=== PATIENT | female | born 1965 | race Caucasian/White ===

== ENCOUNTER 2016-05-06 13:29 | Emergency (ER) | payer OTHER ==
[2016-05-06 14:13] VITALS: TEMP 98.1
--- NOTE | 2016-05-06 14:17 | ED.PDOC ---
History of Present Illness - General Chief Complaint: Dental/Mouth Stated Complaint: right mouth discomfort Time Seen by Provider: 05/06/16 14:09 Source: patient Additional Information: PT WITH ONSET OF MANDIBULAR PAIN RADIATING TO R EAR. STARTED INITIALLY IN TEETH. - History of Present Illness Timing/Duration: other - 2 DAYS Severity: mild Improving Factors: nothing Worsening Factors: nothing Associated Symptoms: denies symptoms Allergies/Adverse Reactions: Allergies Aspirin Allergy (Verified 05/06/16 13:55) Anaphylaxis Levofloxacin [From Levaquin] Allergy (Verified 05/06/16 13:55) Other Increased heart rate, chest discomfort Home Medications: Ambulatory Orders Amoxicillin [Amoxil] 500 mg PO TID #30 cap 05/06/16 Olopatadine HCl [Pataday] 0.2 % OPHTH DAILY 05/06/16 Restasis Multidose OPHTH DAILY 05/06/16 Venlafaxine Xr [Effexor XR] 75 mg PO DAILY 05/06/16 Xanax PO DAILY 05/06/16 Review of Systems - Review of Systems Constitutional: Denies: chills, fever EENTM: States: ear pain, mouth pain. Denies: eye pain, throat pain Respiratory: Denies: cough, short of breath, wheezing Gastrointestinal/Abdominal: Denies: nausea, vomiting Past Medical History (General) - Patient Medical History Hx Stroke: No Hx Cardiac Disorders: Yes - mitral valve prolapse Hx Congestive Heart Failure: No Hx Diabetes: No - Vaccination History Hx Influenza Vaccination: Yes - 2015 Hx Pneumococcal Vaccination: No - Social History Hx Tobacco Use: Yes - Female History Patient is a Female of Child Bearing Age (10 -59 yrs old): No - menopause Family Medical History - Family History Mother Living Status: Still Living Hx Family Cancer: Yes - Skin CA Physical Exam - Physical Exam General Appearance: Anxious, No apparent distress Eye Exam: bilateral normal Ears, Nose, Throat: hearing grossly normal, normal ENT inspection, other - R UPPER AND LOWER CARIES IN MOLAR WITH GINGIVAL SWELLING AND ERYTHEMA. TTP Neck: non-tender, full range of motion Respiratory: lungs clear, normal breath sounds, no respiratory distress Cardiovascular/Chest: regular rate, rhythm, no murmur Back Exam: normal inspection, no CVA tenderness Extremity: normal range of motion, normal inspection Neurologic: no motor/sensory deficits, alert, normal mood/affect Skin Exam: normal color Lymphatic: no adenopathy Departure - Departure Disposition: Discharge to Home or Self Care Condition: Excellent Departure Forms: ED Discharge - Pt. Copy, Patient Portal Self Enrollment Instructions: Tooth Abscess Prescriptions: Amoxicillin [Amoxil] 500 mg PO TID #30 cap Home Medications: Ambulatory Orders Amoxicillin [Amoxil] 500 mg PO TID #30 cap 05/06/16 Olopatadine HCl [Pataday] 0.2 % OPHTH DAILY 05/06/16 Restasis Multidose OPHTH DAILY 05/06/16 Venlafaxine Xr [Effexor XR] 75 mg PO DAILY 05/06/16 Xanax PO DAILY 05/06/16 Additional Instructions: DILUTE HYDROGEN PEROXIDE WITH 50% TAP WATER. SWISH AND SPIT (DO NOT SWALLOW). SEE A DENTIST RENETTA
[2016-05-06] MEDS ORDERED: traMADol HCL 50 MG TAB PO ONE (14:23)
[2016-05-06 15:27] VITALS: BP 118/83; O2SAT 96
== END 2016-05-06 14:45 | disposition home or self-care (01) ==
LOC: ER 13:29
DX: K04.7 Periapical abscess without sinus (principal); I34.1 Nonrheumatic mitral (valve) prolapse; Z88.6 Allergy status to analgesic agent; Z88.3 Allergy status to other anti-infective agents; Z87.891 Personal history of nicotine dependence

== ENCOUNTER 2018-11-11 16:17 | Emergency (ER) | payer OTHER ==
--- NOTE | 2018-11-11 17:13 | ED.PDOC ---
History of Present Illness - General Chief Complaint: GI Problem Stated Complaint: rash,headache,nausea,diarrhea Time Seen by Provider: 11/11/18 16:23 Source: patient Exam Limitations: no limitations - History of Present Illness Initial Comments: Zuleyma White 52 y/o female came to [facility] ER with skin rash on her torso and thighs for the last 2 months she was seen 2 x by Md was given steroids but not better .Has history of Ulcerative Colitis since in her early 20's and seen GI specialist with multiple colonoscopies done but no follow up with GI specialist made for her colitis she has appointment with dematologist on 21 Nov 2018 for her skin rash.No fever ,no N/V/D.Also has intermittent rectal bleeding from her colitis but no abdominal pains.also with dental pain. Timing/Duration: other - 60 days Severity: moderate Improving Factors: nothing Worsening Factors: nothing Associated Symptoms: other - see hpi Allergies/Adverse Reactions: Allergies Aspirin Allergy (Verified 05/06/16 13:55) Anaphylaxis Levofloxacin [From Levaquin] Allergy (Verified 05/06/16 13:55) Other Increased heart rate, chest discomfort Meperidine Allergy (Verified 11/11/18 16:51) Home Medications: Ambulatory Orders Venlafaxine Xr [Effexor XR] 75 mg PO DAILY 05/06/16 Acetaminophen W/ Codeine [Tylenol/Codeine #4 300-60 mg] 1 ea PO Q4HR PRN #14 tab 11/11/18 Alprazolam [Xanax] 1 mg PO TID 11/11/18 Amoxicillin 1,000 mg PO BID 7 Days #30 cap 11/11/18 hydrOXYzine HCl [Atarax] 25 mg PO Q6HRS PRN #30 tab 11/11/18 Review of Systems - Review of Systems Gastrointestinal/Abdominal: States: see HPI Skin: States: see HPI, rash All other Systems: Reviewed and Negative, No Change from Baseline Past Medical History (General) - Patient Medical History Hx Stroke: No Hx Cardiac Disorders: Yes - mitral valve prolapse Hx Congestive Heart Failure: No Hx Diabetes: No Hx Gastroesophageal Reflux: Yes - Ulcerative colitis Hx Cancer: Yes - Skin Surgical History: other - - Vaccination History Hx Influenza Vaccination: Yes Hx Pneumococcal Vaccination: No - Social History Hx Tobacco Use: Yes Hx Physical Abuse: No Hx Emotional Abuse: No - Activities of Daily Living Patient Lives Alone: No - Female History Patient is a Female of Child Bearing Age (10 -59 yrs old): No Family Medical History - Family History Mother Living Status: Still Living Hx Family Cancer: Yes - Skin CA Hx Family;Other: sister-ulcerative colitis and colon cancer Physical Exam - Physical Exam General Appearance: Alert, Comfortable, No apparent distress Eye Exam: bilateral normal Ears, Nose, Throat: hearing grossly normal, normal ENT inspection Neck: supple, normal inspection Respiratory: lungs clear, normal breath sounds, no respiratory distress Cardiovascular/Chest: normal peripheral pulses, regular rate, rhythm, no murmur Peripheral Pulses: radial,right: 2+, radial,left: 2+ Gastrointestinal/Abdominal: non tender, soft, no organomegaly Back Exam: no CVA tenderness, no vertebral tenderness Extremity: no pedal edema, no calf tenderness Neurologic: alert, oriented x 3 Skin Exam: normal color, warm/dry, other - dry skin rash torso and thighs Progress - Progress Progress: 11/11/18 17:29 Vital Signs - 8 hr 11/11/18 16:43 Temperature 99.7 F H Pulse Rate [ 120 H Left Brachial] Respiratory 18 Rate Blood Pressure 145/108 [Left Arm] O2 Sat by Pulse 96 Oximetry - Results/Orders Results/Orders: Laboratory Results - last 24 hr 11/11/18 11/11/18 11/11/18 17:28 17:28 17:28 WBC 11.2 H RBC 3.93 L Hgb 12.4 Hct 36.6 MCV 93.0 MCH 31.4 H MCHC 33.8 RDW 25.1 H Plt Count 228 MPV 7.9 Absolute Neuts (auto) 8.30 H Absolute Lymphs (auto) 0.80 L Absolute Monos (auto) 1.90 H Absolute Eos (auto) 0.20 Absolute Basos (auto) 0.00 Neutrophils % 74.1 Lymphocytes % 7.0 L Monocytes % 16.6 H Eosinophils % 1.9 Basophils % 0.4 Normal RBC Morphology Plts ira adequate Sodium 132 L Potassium 3.8 Chloride 96 L Carbon Dioxide 25 Anion Gap 14.8 BUN 6 L Creatinine 0.55 L BUN/Creatinine Ratio 10.9 Random Glucose 95 Serum Osmolality 261.9 L Calcium 9.1 Iron 24 L TIBC 336.0 Iron Saturation 7.10 L Ferritin 10.2 L Total Bilirubin 0.5 AST 22 ALT 22 Alkaline Phosphatase 66 Serum Total Protein 7.1 Albumin 3.6 Globulin 3.5 Albumin/Globulin Ratio 1.0 L discuss all test results with patient Departure - Departure Clinical Impression: Skin rash, Pain, dental Ulcerative colitis, unspecified Qualifiers: Ulcerative colitis location: unspecified ulcerative colitis location Digestive disease complication type: unspecified complication Qualified Code(s): K51.919 - Ulcerative colitis, unspecified with unspecified complications Time of Disposition: 18:46 Disposition: Discharge to Home or Self Care Condition: Fair Departure Forms: ED Discharge - Pt. Copy, Patient Portal Self Enrollment Instructions: Ulcerative Colitis (DC), Inflammatory Bowel Disease, Ulcerative Colitis in Adults, Inflammatory Bowel Disease (DC), Dental Pain (DC), Skin Rash (DC) Prescriptions: Acetaminophen W/ Codeine [Tylenol/Codeine #4 300-60 mg] 1 ea PO Q4HR PRN #14 tab PRN Reason: Pain hydrOXYzine HCl [Atarax] 25 mg PO Q6HRS PRN #30 tab PRN Reason: Allergies Amoxicillin 1,000 mg PO BID 7 Days #30 cap Home Medications: Ambulatory Orders Venlafaxine Xr [Effexor XR] 75 mg PO DAILY 05/06/16 Acetaminophen W/ Codeine [Tylenol/Codeine #4 300-60 mg] 1 ea PO Q4HR PRN #14 tab 11/11/18 Alprazolam [Xanax] 1 mg PO TID 11/11/18 Amoxicillin 1,000 mg PO BID 7 Days #30 cap 11/11/18 hydrOXYzine HCl [Atarax] 25 mg PO Q6HRS PRN #30 tab 11/11/18 Additional Instructions: Follow up with primary Md for referral back to GI specialist;Keep appointment with Drmatologist as scheduled
[2018-11-11] MEDS ORDERED: HYDROCOD/APAP 10/325 (ER DISP) # 3 tablets PO ONE (18:42)
[2018-11-11] MEDS ORDERED: hydrOXYzine HCl 25 MG TAB PO ONE (18:42)
[2018-11-11] MEDS ORDERED: HYDROcodone 10MG/APAP 325MG 1 EA TAB PO ONE (18:42)
[2018-11-11] MEDS ORDERED: AMOXICILLIN 500 MG CAP PO ONE (18:42)
[2018-11-11 19:06] VITALS: BP 149/99; TEMP 98.7; O2SAT 97
== END 2018-11-11 19:05 | disposition home or self-care (01) ==
LOC: ER 16:17
DX: R21 Rash and other nonspecific skin eruption (principal); K08.89 Other specified disorders of teeth and supporting structures; K51.919 Ulcerative colitis, unspecified with unspecified complications; I34.1 Nonrheumatic mitral (valve) prolapse; Z85.828 Personal history of other malignant neoplasm of skin; Z87.891 Personal history of nicotine dependence; Z79.899 Other long term (current) drug therapy; Z88.6 Allergy status to analgesic agent; Z88.1 Allergy status to other antibiotic agents; Z88.8 Allergy status to other drugs, medicaments and biological substances

== ENCOUNTER → 2019-08-28 | Outpatient (CLI) | payer OTHER ==
--- NOTE | 2019-08-29 11:47 | US ---
EXAM DESCRIPTION: Liver: ULTRASOUND. CLINICAL HISTORY: ELEVATED LIVER ENZYMES LEVEL COMPARISON: None. TECHNIQUE: Transabdominal scannin-dimensional and Doppler modes. FINDINGS: Gallbladder: normal size, shape, echogenicity; no intraluminal stones or sludge. No fluid around the gallbladder. No wall thickening. 2.2 mm. Non-tender with transducer pressure. Common bile duct: caliber 3.7 mm within normal limits. Liver: Increased echogenicity; contour liver capsule smooth where seen. No fluid around the liver. Intrahepatic biliary ducts normal caliber. Doppler hepatopedal flow portal vein. 9 mm caliber at emmy hepatis. Long axis right lobe 13.7 Pancreas: normal size and echogenicity. Duct not seen. Right kidney: long axis measures 10.2 cm. Normal cortical echogenicity. Normal cortical thickness. No echogenic stones or hydronephrosis. Aorta proximal: 2.11 cm normal caliber. IMPRESSION: Steatosis of the liver without enlargement. No intrahepatic duct dilation. Physiologic vascularity. Remainder of the right upper quadrant abdomen contents are unremarkable. No ascites. The stomach was not imaged. Electronically signed by: Nadir Anton MD 08/29/2019 11:46 AM CDT
== END ==
LOC: US 16:04
PROVIDERS: ATTEND Nurse Practitioner Family
DX: K76.0 Fatty (change of) liver, not elsewhere classified (principal)